=== PATIENT | male | born 1935 | race Caucasian/White ===

== ENCOUNTER → 2017-09-22 09:50 | Outpatient (CLI) | payer MEDICARE, SELFPAY ==
--- NOTE | 2017-09-22 10:02 | CA_ITS ---
PROCEDURE: 2-D M-mode and color Doppler study INDICATIONS FOR THE TEST: Chest pain COPD Heart Murmur Tobacco Smoking Palpitations+ Fatigue+ Syncope Edema Hypertension+Diabetes Mellitus Rheumatic Fever SOB VALVERDE Obesity Hyperlipidemia Family History HD Additional History PATIENT INFORMATION HEIGHT: 67 WEIGHT:173 GENDER: Male B/P: 2-D/M-MODE INTERPRETATION: 2-D MEASUREMENTS OBSERVED VALUES IN CMS Right Ventricular Dimension (RVDd) 3.4 Interventricular Septum (Thickness)(IVsd) 1.7 Left Ventricular Internal Dimensions(LVIDd) 4.3 Left Ventricular Posterior Wall (Thickness)(LVPWd) 0.9 Aortic Root 4.4 Aortic Cusp Separation 2.1 Left Atrial Dimensions (LAD) 2.6 2D 1. Technically difficult study 2. Left atrium is mildly enlarged, left ventricle is normal size, there is mild concentric left ventricular hypertrophy, visually estimated ejection fraction of 55% with no obvious regional wall motion abnormality, endocardial surfaces are poorly visualized. 3. The right atrium and right ventricle are mildly enlarged with normal contractility. 4. The aortic valve is minimally thickened and fibrosed leaflet continue to display mobility. 5. The mitral and tricuspid valve leaflets are grossly normal. 6. The pulmonic valve is poorly visualized. 7. No significant pericardial effusion noted. DOPPLER INTERROGATION: Doppler interrogation of the aortic, mitral and tricuspid valvular presence of trace aortic, mild mitral and tricuspid regurgitation, calculated right ventricular systolic pressure is 40 mmHg consistent with mild pulmonary hypertension,, grade 1 diastolic dysfunction seen with tissue Doppler evidence of raised left atrial pressure. CONCLUSION: 1. Mildly enlarged left atrium, normal left ventricular size, mild concentric left ventricular hypertrophy, visually estimated ejection fraction 55% with no obvious regional wall motion abnormality, grade 1 diastolic dysfunction seen without tissue Doppler evidence of raised left atrial pressure. 2. Mildly enlarged right ventricle with normal contractility. 3. Calculated right ventricular systolic pressure 40 mmHg consistent with mild pulmonary hypertension. Mild mitral and tricuspid regurgitation seen. 4. No significant pericardial effusion noted
== END ==
PROVIDERS: Family Provider Internal Medicine Adolescent Medicine; PCP Nurse Practitioner Family; Visit Provider Nurse Practitioner Family
DX: R00.2 Palpitations (principal)
CPT/HCPCS: 93306

== ENCOUNTER → 2020-12-04 06:45 | Outpatient (CLI) | payer MEDICARE, SELFPAY ==
--- NOTE | 2020-12-04 07:01 | CT_ITS ---
PROCEDURE: CT PELVIS WO CON CLINICAL INDICATION: ABD PAIN/POSS HERNIA COMPARISON: CT ABDPELW/O CT ABD PELVIS W/O CONTRAST from 11/13/2014 TECHNIQUE: Axial images obtained with sagittal and coronal reformats. All CT scans at the facility use one or more dose reduction, viz: automated exposure control, ma/kV adjustment per patient size (including targeted exams where dose is matched to indication, i.e. head), or iterative reconstruction technique. FINDINGS: There is a small right inguinal hernia which contains a loop of small bowel and mesenteric fat. The hernia is lateral to the inferior epigastric vessels consistent with an indirect hernia. The left inguinal area has an unremarkable appearance. Bowel gas pattern is nonspecific. There is does not appear to be an obstruction caused by the hernia. Fluid-filled loops of small bowel are present in the lower abdomen and pelvis without significant distension. There is colonic diverticulosis. There is a tiny umbilical hernia containing fat. Unremarkable appendix. The kidneys are incompletely imaged. The imaged portion of the kidneys have an unremarkable appearance. Atherosclerotic changes are present in the aortoiliac vessels. No acute bony findings. IMPRESSION: Small right indirect inguinal hernia containing a small bowel loop and mesenteric fat. No bowel obstruction. Colonic diverticulosis without diverticulitis Dictated by: Supa Madrid MD 12/05/2020 09:57 Supa Madrid MD in [facility] 12/05/2020 09:57
== END ==
PROVIDERS: PCP Nurse Practitioner Family; Visit Provider Nurse Practitioner Family
DX: K40.90 Unilateral inguinal hernia, without obstruction or gangrene, not specified as recurrent (principal)
CPT/HCPCS: 72192

== ENCOUNTER → 2021-01-09 09:47 | Outpatient (CLI) | payer MEDICARE, SELFPAY ==
[2021-01-09 09:50] LABS: Microscopic, Urine URINE MICROSCOPIC (MICROSCOPIC)
[2021-01-09 14:48] LABS: Basophils # 0.1 K/mm3 (0-0.2); Basophils % 0.9 % (0.1-2.0); Eosinophils # 0.2 K/mm3 (0.0-0.4); Eosinophils % 2.3 % (0.1-12.0); Hematocrit 45.2 % (42.0-52.0); Hemoglobin 15.1 g/dL (14.1-18.0); Lymphocytes # 2.8 K/mm3 (0.7-4.5); Lymphocytes % 35.1 % (10-50); Mean Corpuscular HGB Conc 33.4 g/dL (31.8-35.4); Mean Corpuscular Hemoglobin 33.8 pg (27.0-31.2); Mean Corpuscular Volume 101.3 fl (80-94); Mean Platelet Volume 9.5 fl (7.4-10.4); Monocytes # 0.5 K/mm3 (0.1-1.0); Monocytes % 6.3 % (1.7-9.3); Neutrophils # 4.4 K/mm3 (1.8-7.8); Neutrophils % 55.5 % (37.0-80.0); Platelet Count 246 K/mm3 (142-424); Red Blood Count 4.46 M/mm3 (4.60-6.20); Red Cell Distribution Width 14.6 % (11.5-17.5); White Blood Count 7.9 K/mm3 (4.8-10.8)
[2021-01-09 14:56] LABS: Appearance,Urine CLEAR (Clear); Bilirubin,Urine Negative (Negative); Blood, Urine Negative (Negative); Color,Urine YELLOW (Yellow); Glucose,Urine (UA) Negative (Negative); Ketones,Urine Negative (Negative); Leukocyte Esterase,Urine Negative (Negative); Nitrate,Urine Negative (Negative); Protein,Urine Negative (Negative); Urobilinogen,Urine 0.2 EU/dl (0.2)
[2021-01-09 15:44] LABS: Anion Gap 13.2 mEq/L (5-15); Blood Urea Nitrogen 23 mg/dl (9-20); Calcium 9.3 mg/dl (8.4-10.2); Carbon Dioxide 25 mmol/L (22.0-30.0); Chloride 104 mmol/L (98-107); Estimated Glomerular Filt Rate 52 ml/min (>60); GFR (African American) 63 ML/MIN (>60); Glucose 120 mg/dl (74-100); Potassium 4.2 mmoL/L (3.5-5.1); Sodium 138 mmol/L (136-145)
== END ==
PROVIDERS: Visit Provider Surgery
DX: K40.90 Unilateral inguinal hernia, without obstruction or gangrene, not specified as recurrent (principal); S51.819A Laceration without foreign body of unspecified forearm, initial encounter; Z01.812 Encounter for preprocedural laboratory examination; Z20.822 Contact with and (suspected) exposure to COVID-19
CPT/HCPCS: 36415; 80048; 81001; 85025; C9803; U0003; U0005

== ENCOUNTER 2021-01-11 06:04 | Day surgery (SDC) | payer MEDICARE, SELFPAY ==
[2021-01-07 13:35] VITALS: BMI 28.5
[2021-01-11] VITALS (10 sets, daily range): BP systolic 122–164; BP diastolic 58–103; PULSE 78–94; RESP 10–18; TEMP 36.4–43; O2SAT 92–96
--- NOTE | 2021-01-11 06:26 | ECG_ITS ---
APPROVED REPORT Exam: Resting ECG HR:72 bpm ECG Measurements Heart Rate 72 AXES MS 188 P 47 QRSd 88 QRS 30 QT 422 T 14 QTc 462 Conclusion Normal sinus rhythm Inferior infarct, age undetermined Abnormal ECG Electronically signed by : Valeriano Solo MD 01/12/2021 19:30:50
--- NOTE | 2021-01-11 06:57 | HMH.ANESCL ---
[facility] Anesthesia Checklist - Structural Data Admitted From: Home Planned Operative Procedure/s: inguinal hernia repair Consent for Planned Operative Procedure(s) Verified: Yes - Additional verifications Anesthesia Reactions: No Hx Blood Transfusions: No Blood Transfusion Reaction: No - Airway Assessment C-Spine Mobility Assessed: Yes TMJ Mobility Assessed: Yes Dentition: Edentulous - Neurological Assessment Level of Consciousness: Awake, Alert, Appropriate - Anesthesia Plan Anesthesia Risk discussed: Yes Anesthesia Plan: Verified ASA Class: II Anesthesia Type: General [facility] History I have reviewed the patient's past medical history: Yes Medical History: Reports:: Hyperlipidemia, Hypertension Denies:: Cancer, Diabetes Mellitus Type 1, Diabetes Mellitus Type 2, MRSA, Seizures *Have you ever received a pneumonia vaccine?: Yes *Have you received a flu vaccine this season?: Yes Other Medical History: Denies: Blood Transfusion Reaction Anesthesia experience/problems:: none Laterality Cases: Bilateral: Cataract Other Surgeries: Yes: Cholecystectomy, Colonoscopy Amputation: No Fractures: No - *Social History Last grade of school completed: 11th or 12th Smoking Status: Never smoker Alcohol Intake: never Substance Use Type: denies use *Occupational Status:: retired Housing: house Household Members: significant other *Travel in the last 8 weeks: None Family Hx:: No significant family history
--- NOTE | 2021-01-11 09:30 | P.OP_ITS ---
Date of procedure: 01/11/21 Pre-op Diagnosis:: Right inguinal hernia Post-op Diagnosis:: Same Procedure performed:: Open right inguinal hernia repair Surgeon:: Sha Donovan MD Anesthesia: LMA Estimated blood loss (mL): 15 Operative findings:: Large indirect defect Severe soft tissue stranding throughout canal Thin-walled hernia sac with significant adhesions to surrounding tissue Operative note:: After informed consent was obtained the patient was taken to the operating room and placed in the supine position. General anesthesia was induced and his abdomen/groin/scrotum was prepped and draped in a sterile fashion. After infiltration with local anesthetic a right oblique groin incision was completed. The deep subcutaneous tissue was dissected through Romie's fascia with electrocautery. Dissection continued to the level of the external aponeurosis. The external aponeurosis was sharply opened to the level of the external ring. The contents of the canal were carefully elevated. Severe soft tissue thickening was noted. A cord lipoma was transected free from surrounding tissue. A thin-walled hernia sac with significant adhesions to surrounding tissue was confirmed. A combination of careful blunt dissection, sharp dissection with Metzenbaum scissors, and electrocautery was utilized to free the hernia sac from surrounding tissue. No obvious injury to cord structures was noted. The opening in the hernia sac was reapproximated with running Vicryl suture. An extra-large PerFix plug was then secured in the defect with i nterrupted Ethibond. The PerFix overlay mesh was then secured to the shelving edge inferiorly and fascial margin superior with interrupted Ethibond. The external aponeurosis was reapproximated with running Vicryl suture. Romie's fascia was closed in the same manner. Skin was then reapproximated with running 3-0 Stratafix. Dressings were applied and the patient was transferred to recovery in stable condition. Condition: stable Disposition: PACU Specimens:: None Complications:: No immediate
--- NOTE | 2021-01-11 09:38 | P.PN_ITS ---
[facility] Anesthesia Record Part I Intake, IV Amount: 1,000 Estimated blood loss (mL): 10 Urine output (mL): 100 Blood Pressure: 139/77 SaO2: 92 Pulse Rate: 84 Respiratory Rate: 10 Temperature: 98.9 F Patient is:: Drowsy Stable to PACU at:: 09:35
--- NOTE | 2021-01-11 10:10 | PC.NURSE ---
1003-detailed report given to ismael tenorio 1005-pt transported to post op via stretcher w/jaxon rails up and left in care of ismael tenorio with bed locked in lowest position, vss, pt stable
[2021-01-11 15:18] LABS: Microscopic,Cath URINE MICROSCOPIC (MICROSCOPIC)
[2021-01-11 15:26] LABS: Appearance,Urine/Cath CLEAR (Clear); Bilirubin,Cath Negative (Negative); Blood, Urine/Cath Negative (Negative); Color,Urine/Cath YELLOW (Yellow); Glucose,Urine/Cath (UA) Negative (Negative); Ketones,Urine/Cath Negative (Negative); Leukocyte Esterase,Cath Negative (Negative); Nitrate,Cath Negative (Negative); PH,Urine/Cath 6.5 (5.0-8.5); Protein,Urine/Cath Negative (Negative); Urobilinogen,Cath 0.2 EU/dl (0.2)
[2021-01-11 18:49] LABS: Bacteria,Urine/Cath TRACE /lpf; WBC,Urine/Cath Occasional #/hpf (0-3)
== END 2021-01-11 10:40 | disposition home or self-care (01) ==
LOC: OR 06:07
PROVIDERS: PCP Nurse Practitioner Family; Visit Provider Surgery
DX: K40.90 Unilateral inguinal hernia, without obstruction or gangrene, not specified as recurrent (principal); R82.90 Unspecified abnormal findings in urine; Z79.899 Other long term (current) drug therapy; Z79.82 Long term (current) use of aspirin; Z88.2 Allergy status to sulfonamides; Z88.8 Allergy status to other drugs, medicaments and biological substances
CPT/HCPCS: 49505; 81001; 87086; 93005; 96374; J2405

== ENCOUNTER 2022-02-01 09:29 | Emergency (ER) | payer MEDICARE, SELFPAY ==
[2022-02-01 09:38] VITALS: BP 141/80; PULSE 71; RESP 20; TEMP 37.1; O2SAT 93; BMI 28.6
[2022-02-01 09:39] VITALS: BMI 28.6
[2022-02-01 09:43] LABS: Influenza A, PCR Not Detected (NotDetected); Influenza B, PCR Not Detected (NotDetected)
--- NOTE | 2022-02-01 09:47 | XR_ITS ---
PROCEDURE INFORMATION: Exam: XR Chest Exam date and time: 02/01/2022 9:45 AM Age: 86 years old Clinical indication: Cough TECHNIQUE: Imaging protocol: Radiologic exam of the chest. Views: 2 views. COMPARISON: CR CXR2 CHEST-AP VIEW ONLY 09/26/2015 12:14 PM FINDINGS: Lungs: Stable interstitial prominence and possible scarring bilaterally. Emphysematous changes. No focal consolidation. Pleural spaces: Unremarkable. No pleural effusion. No pneumothorax. Heart/Mediastinum: Unremarkable. No cardiomegaly. Bones/joints: Unremarkable. IMPRESSION: Stable chronic changes without acute process.
--- NOTE | 2022-02-01 09:47 | HMH.EDGENADL ---
Discharge Plan Disposition Patient Disposition: Home, Self-Care Condition: Good Prescriptions Prescriptions: New Paxlovid (EUA) 300 mg (150 mg x 2)-100 mg tablets,dose pack See Rx Instructions .Route .COMPLEX Qty: 30 0RF Rx Instructions: take TWO 150 mg tablets of nirmatrelvir with ONE 100 mg tablet of ritonavir twice daily for 5 days. Stop taking Simvastatin and Nasocort spray while taking Paxlovid, and restart 2 days after finishing Paxlovid. No Action losartan 25 mg tablet 12.5 mg PO DAILY famotidine 20 mg tablet 20 mg PO DAILY gabapentin 100 mg capsule 400 mg PO HS topiramate 100 mg tablet 100 mg PO DAILY allopurinol 300 mg tablet 300 mg PO HS levothyroxine 50 mcg tablet 50 mcg PO DAILY potassium chloride 20 mEq tablet,ER particles/crystals 20 meq PO BID simvastatin 20 mg tablet 10 mg PO HS acyclovir 200 mg capsule 200 mg PO HS cetirizine 10 mg tablet 10 mg PO DAILY PRN (Reason: allergies) triamcinolone acetonide [Nasacort] 55 mcg aerosol,spray 1 spray INTRANASAL DAILY Rx Instructions: administer into each nostril aspirin 81 mg capsule 81 mg PO DAILY sour liu extract 1,000 MG capsule 1,200 mg PO DAILY Referrals Follow up/Referrals: Stephenie Naqvi [Primary Care Provider] - See instructions Activity Restrictions/Add. Instructions Additional Instructions/Restrictions: Paxlovid as prescribed. Stop taking simvastatin and Nasacort nasal spray while taking Paxlovid, then restart 2 days after finishing Paxlovid. ADDITIONAL INSTRUCTIONS FOR COVID-19: Rest, drink plenty of fluids. Tylenol or Ibuprofen for fever and/or aches and pains. Monitor your symptoms. IF YOU HAVE AN EMERGENCY WARNING SIGN (INCLUDING TROUBLE BREATHING), SEEK EMERGENCY MEDICAL CARE IMMEDIATELY. COVID-19 Isolation: People with COVID-19 should isolate for 5 days. Then if they are asymptomatic (no symptoms) or their symptoms are resolving (without fever for 24 hours), follow that by 5 days of wearing a mask when around others to minimize the risk of infecting people you encounter. If you test positive for COVID-19 and never develop symptoms, day 0 is the day of your positive viral test (based on the date you were tested) and day 1 is the first full day after your positive test. If you develop symptoms after testing positive, your 5-day isolation period must start over. Day 0 is your first day of symptoms. Day 1 is the first full day after your symptoms developed. What to do: Stay in a separate room from other household members, if possible. Use a separate bathroom, if possible. Avoid contact with other members of the household and pets. Don?t share personal household items, like cups, towels, and utensils. Wear a mask when around other people if able. Clinical Impressions Clinical Impression: COVID-19 virus infection Instructions Patient Instructions: DI for COVID-19 (Suspected or Confirmed ) Discharge ED Provider: [facility] HPI General Chief complaint: Upper Respiratory Infection Stated complaint: Sore throat, SOA, Cough, Bodyaches, weak Time Seen by Provider: 02/01/22 09:42 Mode of Arrival: Ambulatory Source of Information: Patient Limitations: No Limitations Description of Symptoms (Recalled from ER Triage Doc. by RN): pt to ed c/o headache, sore throat, cough and dizziness since thursday. pt reports he want to his pcp this morning he was instructed to come to the ed for eval. History of Present Illness HPI narrative: 4-day history of headache, sore throat, productive cough, intermittent low back pain, and episodes of weakness. He had an episode of weakness today while taking a shower and had to have help getting out of the shower. Called his primary care provider who advised him to come to the emergency department and get a chest x-ray. Denies fever. He has been immunized against flu and COVID
[2022-02-01 10:00] VITALS: BP 142/80; PULSE 68; RESP 20; O2SAT 94
[2022-02-01 10:05] LABS: Coronavirus 19, PCR Detected (NotDetected)
[2022-02-01 10:31] VITALS: BP 132/72; PULSE 68; RESP 17; O2SAT 95
[2022-02-01 10:47] VITALS: BP 133/74; PULSE 87; RESP 18; TEMP 37.1; O2SAT 95
== END 2022-02-01 10:47 | disposition home or self-care (01) ==
PROVIDERS: Emergency Provider Emergency Medicine; PCP Nurse Practitioner Family
DX: U07.1 COVID-19 (principal)
CPT/HCPCS: 71046; 99212; 99283; C9803; G0463; U0003; U0005

== ENCOUNTER → 2022-09-16 15:03 | Outpatient (CLI) | payer MEDICARE, SELFPAY ==
--- NOTE | 2022-09-16 15:14 | MR_ITS ---
PROCEDURE INFORMATION: Exam: MR Left Upper Extremity Joint Without Contrast; Shoulder Exam date and time: 09/16/2022 3:45 PM Age: 87 years old Clinical indication: Pain; Shoulder; Left; Additional info: Pain of left shoulder joint TECHNIQUE: Imaging protocol: Magnetic resonance imaging of the left upper extremity without contrast. Exam focused on the shoulder. COMPARISON: CR XR CHEST 2V 02/01/2022 9:45 AM FINDINGS: Limitations: Motion artifact. Bones/joints: There is severe primary osteoarthritis of the glenohumeral joint with extensive full-thickness cartilage loss. There is thinning of the glenoid. A small marginal osteophyte is present along the inferomedial humeral head. Intra-articular osteochondral bodies measure to 8 mm. A large effusion involves the glenohumeral joint. The undersurface of the acromion has a normal curvature, consistent with a type II acromion. There is mild primary osteoarthritis of the acromioclavicular joint. Glenoid labrum: The glenoid labrum has extensive abnormal signal and morphology consistent with degenerative tearing. Bursae: A mild amount of fluid is present in the subacromial-subdeltoid bursa. Supraspinatus tendon: High-grade partial-thickness tearing involving the anterior approximately 5 mm of the supraspinatus tendon is either intrasubstance or articular in location with assessment of this region limited (series 5/image 19). Severe tendinosis involves the adjacent intact supraspinatus tendon. Infraspinatus tendon: Very low-grade intrasubstance tearing involves the infraspinatus tendon. There is mild to moderate tendinosis of the adjacent intact infraspinatus tendon. Subscapularis tendon: Low-grade partial-thickness tearing involves the bursal surface and intrasubstance region of the subscapularis tendon. Severe tendinosis involves the remainder of the subscapularis tendon. Teres minor tendon: No tear or significant tendinosis involves the teres minor tendon. Tendon of biceps brachii: The intra-articular portion of the long head of the biceps tendon is poorly visualized. This may represent unusually severe tendinosis, high-grade partial-thickness tear, or full-thickness tear. Glenohumeral ligaments: The superior glenohumeral ligament is thickened with increased T2 signal suggesting partial thickness tearing that is likely chronic. The middle and inferior glenohumeral ligaments are intact. Soft tissues: The rotator cuff musculature demonstrates no significant edema or atrophy. IMPRESSION: 1. 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 2. Focal high-grade partial-thickness tear involving the anterior supraspinatus tendon in approximately a 5 mm region without muscle atrophy. 3. Infraspinatus very low-grade intrasubstance tearing superimposed on tendinosis. 4. Low-grade partial-thickness tearing of the subscapularis tendon bursal surface and intrasubstance region, superimposed on severe tendinosis. 5. Poorly delineated intra-articular portion of the long head of the biceps tendon, which may represent unusually severe tendinosis, high-grade partial-thickness tear or full-thickness tear. 6. 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 7. Mild primary osteoarthritis of the acromioclavicular joint. 8. Large glenohumeral joint effusion. 9. Mild subacromial-subdeltoid bursitis.
== END ==
PROVIDERS: PCP Nurse Practitioner Family; Visit Provider Nurse Practitioner Family
DX: M25.512 Pain in left shoulder (principal)
CPT/HCPCS: 73221

== ENCOUNTER 2022-12-24 09:30 | Outpatient (RCR) | payer MEDICARE, SELFPAY | END 2022-12-24 09:35 | disposition home or self-care (01) | LOC: OT 09:30 | PROVIDERS: PCP Nurse Practitioner Family; Visit Provider Nurse Practitioner Family | DX: I63.9 Cerebral infarction, unspecified (principal) | CPT/HCPCS: 97165 ==

== ENCOUNTER 2023-01-22 09:00 | Outpatient (RCR) | payer MEDICARE, SELFPAY | END 2023-01-27 16:00 | disposition home or self-care (01) | LOC: PT 09:00 | PROVIDERS: PCP Nurse Practitioner Family; Visit Provider Nurse Practitioner Family | DX: I63.9 Cerebral infarction, unspecified (principal) | CPT/HCPCS: 97110; 97112; 97163; 97530 ==